=== PATIENT | male | born 1980 | race Caucasian/White ===

== ENCOUNTER 2018-05-09 10:49 | Emergency (ER) | payer OTHER ==
--- NOTE | 2018-05-09 10:59 | PDOC ---
History of Present Illness - General Chief Complaint: Cold Symptoms Stated Complaint: HEADACHE AND COUGH History Source: Patient Exam Limitations: No Limitations - History of Present Illness Initial Comments: 05/09/18 11:17 37y M with newly dx HIV (on HAART, but does not know CD4 or VRL) present with complaint of headache, cough, dizziness, malaize for about 1.5 weeks. PT states he originally had nasal congestion, then started to have a coughing that was ocassionally productive of greenish sputum. denies fevers, sob, abd pain, n/v, diarrhea, dysuria, rashes. pt endorses mild headache and lightheadedness when he stands up. Denies feeling off balance, vision changes, numbness/tingling/ weakness neck pain, back pain. No known sick contacts. Pt ntoes he works at [employer] and has been doing alot of manual labor ([employer] and states has been sweating alot). PMD: Casie 05/09/18 11:22 Past History - Past Medical History Allergies/Adverse Reactions: Allergies Allergy/AdvReac Type Severity Reaction Status Date / Time No Known Allergies Allergy Unverified 05/09/18 10:57 Home Medications: Ambulatory Orders Darunavir Ethanolate [Prezista] 800 mg PO DAILY 05/09/18 Emtricitabine [Emtriva -] 200 mg PO DAILY 05/09/18 Ribavirin 100 mg PO DAILY 05/09/18 Tenofovir Disoproxil Fumarate 300 mg PO DAILY 05/09/18 Review of Systems - Review of Systems Able to Perform ROS?: Yes Comments:: 05/09/18 11:19 Constitutional - no reported Fever, Chills, HEENT: +nasal congestion no reported vision changes, sore throat Respiratory: + cough,no reported sob, hemoptysis Cardiac: no reported chest pain, palpitations, leg swelling Abd/GI: no reported abd pain, nausea, vomiting, blood per rectum, melena, diarrhea : no reported dysuria, frequency, discharge Musculskelatal - no reported back pain, joint swelling skin - no reported bruising, erythema, rash neurological: + light headedness +headache, no reported numbness, focal weakness, tingling, ataxia, hematologic: no reported easy bruising, easy bleeding *Physical Exam - Physical Exam Comments: 05/09/18 11:22 GENERAL: The patient is awake, alert, and fully oriented, Nontoxic - in no acute distress. HEAD: Normocephalic, atraumatic. EYES: extraocular movements intact, sclera anicteric, conjunctiva clear. ENT: Normal voice, dry mucous membranes. NECK: Normal range of motion, supple LUNGS: Breath sounds equal, clear to auscultation bilaterally. No wheezes, no rhonchi, no rales. HEART: Regular rate and rhythm, normal S1 and S2 without murmur, rub or gallop. ABDOMEN: Soft, nontender, normoactive bowel sounds. No guarding, no rebound. . No CVA tenderness EXTREMITIES: Normal range of motion, no edema. No clubbing or cyanosis. No cords, erythema, or tenderness. PSYCH: Normal mood, normal affect. SKIN: Warm, Dry, normal turgor, NEURO: Mental status: The patient is oriented x3. Cranial nerves: Cranial nerves II through XII are intact Motor: The upper extremities are 5 over 5 in all muscle groups. The lower extremities are 5 over 5 in all muscle groups. Negative pronator drift Sensation: Sensation is intact to light touch throughout. romberg negative Cerebellar: Atokdm-hvblau-jsch is normal in both upper extremities. Heel-knee- ward is normal in both lower extremities. rapid alternating movements are normal. Reflexes: 2+ and symmetric in the upper and lower extremities. Gait: Normal. Heel and toe walking are normal. Tandem gait is normal. ED Treatment Course - LABORATORY CBC & Chemistry Diagram: 05/09/18 11:30 05/09/18 11:25 Medical Decision Making - Medical Decision Making 05/09/18 12:39 suspect viral syndrome with mild dehdyration pt given fluids for hydration pts labs reviewed - noted for mild leukocytosis, likely secondary to his HIV infeciton. cxr neg for pna pt feelnig improved will dc the pt with pmd fu return precautions wre discussed I discussed the physical exam findings, ancillary test results and final diagnoses with the patient. I answered all of the patient's questions. The patient was satisfied with the care received and felt comfortable with the discharge plan and treatment plan. The patient will call their primary care physician within 24 hours to arrange follow-up and will return to the Emergency Department with any new, persistent or worsening symptoms. *DC/Admit/Observation/Transfer Diagnosis at time of Disposition: Viral syndrome - Discharge Dispostion Disposition: HOME Condition at time of disposition: Improved Decision to Admit order: No - Referrals Referrals: Roque Briones MD [Staff Physician] - - Patient Instructions Printed Discharge Instructions: DI for Viral Upper Respiratory Infection -- Adult Additional Instructions: Return to the emergency department immediately with ANY new, persistent or worsening symptoms. You MUST call and follow up with your doctor in 3-4 days for further evaluation of your symptoms. Results were discussed with you. Please make sure your doctor reviews the results of your emergency evaluation. Print Language: HEBREW - Post Discharge Activity
[2018-05-09] MEDS ORDERED: ACETAMINOPHEN 325 MG TABLET (FP) PO ONE (11:16)
[2018-05-09] MEDS ORDERED: SODIUM CHLORIDE 1,000 ML IV ONE (11:16)
[2018-05-09 11:18] VITALS: BP 138/85; PULSE 58; TEMP 97.6; BMI 24.3
[2018-05-09] MEDS ORDERED: ACETAMINOPHEN 325 MG TABLET (FP) ONE (11:32)
[2018-05-09 11:51] LABS: BASO % 0.9 % (0-2.0); EOS % 4.2 % (0-4.5); HEMATOCRIT 43.6 % (35.4-49); HEMOGLOBIN 14.8 GM/dl (11.7-16.9); LYMPH % 40.5 % (8-40); MCH 29.5 pg (25.7-33.7); MCHC 33.8 g/dl (32.0-35.9); MEAN PLT VOLUME 9.2 fl (7.5-11.1); MONO % 6.8 % (3.8-10.2); NEUT % 47.6 % (42.8-82.8); PLATELET COUNT 156 K/MM3 (134-434); RBC 5.01 M/mm3 (4.00-5.60); RDW 12.9 % (11.9-15.9)
[2018-05-09 12:23] LABS: ALK PHOS 58 U/L (32-92); ANION GAP 5 MMOL/L (8-16); BILIRUBIN,TOTAL 0.6 mg/dl (0.2-1.0); BLOOD UREA NITROGEN 15 mg/dl (7-18); CHLORIDE 103 mmol/L (98-107); CO2 27 mmol/L (22-28); CREATININE 1.2 mg/dl (0.6-1.3); GLUCOSE,RANDOM 98 mg/dl (74-106); POTASSIUM 4.8 mmol/L (3.5-5.1); SGOT/AST 21 U/L (10-42); SGPT/ALT 17 U/L (10-40); SODIUM 135 mmol/L (136-145); TOT PROT 8.5 g/dl (6.4-8.3)
== END 2018-05-09 12:50 | disposition home or self-care (01) ==
LOC: FER 10:49
PROC: 3E0337Z Introduction of Electrolytic and Water Balance Substance into Peripheral Vein, Percutaneous Approach (ICD-10-PCS; principal; 2018-05-09)
DX: B34.9 Viral infection, unspecified (principal); Z21 Asymptomatic human immunodeficiency virus [HIV] infection status
CPT/HCPCS: 36415; 71046-TC-FY; 80053; 85025; 99283-25; J7030